=== PATIENT | male | born 1980 | race Two or more races ===

== ENCOUNTER → 2018-12-27 | Outpatient (REF) | payer OTHER | LOC: M SFHCLERA 15:08 | PROVIDERS: ATTEND Nurse Practitioner Family | DX: J02.9 Acute pharyngitis, unspecified (principal) ==

== ENCOUNTER 2019-10-12 08:45 | Day surgery (SDC) | payer OTHER ==
[~2019-10-12] VITALS: Ht 185.4 cm; Wt 112.5 kg
[~2019-10-12 08:45] MED LIST: CYMB1CAP5 PO; LUNE2TAB23 PO; METF500T13 PO; VITA500079 PO
[2019-10-12] MEDS ORDERED: LR 1,000 ML IV SCH ×2 (09:00→13:45)
[2019-10-12] MEDS ORDERED: OMEGCAP4 PO (09:19)
[2019-10-12 09:24] LABS: HEMOGLOBIN 14.1 g/dl (13.5-17.5); MEAN CORPUSCULAR HEMOGLOBIN 29.6 pg (27.0-33.0); MEAN CORPUSCULAR HGB CONC 33.6 g/dl (32.0-36.5); MEAN CORPUSCULAR VOLUME 88.2 fl (80.0-96.0); PLATELET COUNT, AUTOMATED 355 10^3/uL (150-450); RED BLOOD COUNT 4.76 10^6/uL (4.30-6.10)
[2019-10-12 09:51] LABS: BLOOD UREA NITROGEN 16 MG/DL (7-18); CALCIUM LEVEL 8.7 MG/DL (8.5-10.1); CARBON DIOXIDE LEVEL 28 MEQ/L (21-32); CHLORIDE LEVEL 109 MEQ/L (98-107); CREATININE FOR GFR 1.21 MG/DL (0.70-1.30); GLOMERULAR FILTRATION RATE > 60.0 (>60); GLUCOSE, FASTING 103 MG/DL (70-100); POTASSIUM SERUM 4.1 MEQ/L (3.5-5.1); SODIUM LEVEL 142 MEQ/L (136-145)
[2019-10-12] MEDS ORDERED: propofoL 200 MG/20 ML VIAL As Ordered ONE (10:52)
[2019-10-12] MEDS ORDERED: ROCURONIUM BROMIDE 50 MG/5 ML VIAL As Ordered ONE (10:52)
[2019-10-12] MEDS ORDERED: dexameTHASONE 4 MG/ML 1ML VIAL (J1100) As Ordered ONE (10:52)
[2019-10-12] MEDS ORDERED: LIDOCAINE 2% INJ 100 MG/5 ML SDV (FOR ANES.) As Ordered ONE (10:52)
[2019-10-12] MEDS ORDERED: MIDAZOLAM INJ 2 MG/2 ML VIAL (J2250) As Ordered ONE (10:52)
[2019-10-12] MEDS ORDERED: fentaNYL 100 MCG/2 ML INJECTION (J3010) As Ordered ONE ×2 (10:52→12:10)
[2019-10-12] MEDS ORDERED: ONDANSETRON 4MG/2ML VIAL (J2405) As Ordered ONE ×2 (10:52→13:34)
[2019-10-12] MEDS ORDERED: OXYMETAZOLINE NASAL SPRAY (AFRIN) As Ordered ONE ×2 (11:09→12:10)
[2019-10-12] MEDS ORDERED: METHYLENE BLUE 0.5% (5MG/ML) 10 ML AMP (PROVAYBLUE)(Q9968 PER 1MG) As Ordered ONE (11:09)
[2019-10-12] MEDS ORDERED: LIDOCAINE W/EPINEPHRINE 1% 20ML VIAL As Ordered ONE (11:09)
--- NOTE | 2019-10-12 11:31 | ECGEPIP ---
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
[2019-10-12] MEDS ORDERED: ACETAMINOPHEN 1000MG 100ML IV BTL (OFIRMEV) (J0131 PER 10MG) As Ordered ONE (11:58)
[2019-10-12] MEDS ORDERED: ESMOLOL INJ 100MG/10ML VIAL As Ordered ONE (12:11)
[2019-10-12] MEDS ORDERED: SUGAMMADEX SODIUM 500 MG/5 ML VIAL (BRIDION) As Ordered ONE (12:16)
[2019-10-12] MEDS ORDERED: PHENYLephrine HCL 500 MCG/5 ML (100MCG/ML) SYRINGE (J2370) As Ordered ONE (12:28)
[2019-10-12] MEDS ORDERED: IBUPROFEN 800 MG TAB PO PRN (13:45)
[2019-10-12] MEDS ORDERED: PERCOCET 5MG/325MG TAB PO PRN (13:45)
[2019-10-12] MEDS ORDERED: oxyCODONE 5MG TAB PO PRN (13:45)
[2019-10-12] MEDS ORDERED: fentaNYL 100 MCG/2 ML INJECTION (J3010) IV PRN (13:45)
[2019-10-12] MEDS ORDERED: ONDANSETRON 4MG/2ML VIAL (J2405) IV PRN (13:45)
[2019-10-12] MEDS ORDERED: HYDROMORPHONE HCL 0.5 MG/ 0.5 ML SYRINGE (J1170 PER 1) IV PRN (13:45)
[2019-10-12 16:10] VITALS: BP 141/88
== END 2019-10-12 16:22 | disposition home or self-care (01) ==
LOC: M SDC 08:45
PROVIDERS: ATTEND Specialist
DX: J34.2 Deviated nasal septum (principal); J31.0 Chronic rhinitis; E11.9 Type 2 diabetes mellitus without complications; G47.30 Sleep apnea, unspecified; Z79.84 Long term (current) use of oral hypoglycemic drugs; Z79.899 Other long term (current) drug therapy
CPT/HCPCS: 30140; 30520; 36415; 80048; 85027; 93005; J0131; J1100; J2250; J2370; J2405; J3010; Q9968

== ENCOUNTER → 2020-09-09 | Outpatient (REF) | payer OTHER ==
[~2020-09-09] MED LIST changes: +OMEGCAP4 PO
[2020-09-09 11:12] LABS: SEMEN APPEARANCE OPAQUE (OPAQUE); SEMEN VISCOSITY VISCOUS (LIQUID); SEMEN VOLUME 2.5 ml (2.0-5.0); SPERM CONCENTRATION 29.4 M/ml (>=15.0); WBC CONCENTRATION >1 M/ml (<=1 M/ml)
== END ==
LOC: M LAB REF 11:10
PROVIDERS: ATTEND Obstetrics & Gynecology
DX: N46.8 Other male infertility (principal)